=== PATIENT | female | born 1995 | race Caucasian/White ===

== ENCOUNTER 2018-11-20 00:17 | Emergency (ER) | payer OTHER ==
[~2018-11-20] VITALS: Ht 165.1 cm; Wt 77.1 kg
[2018-11-20] MEDS ORDERED: KEFLEX500 M1 PO (01:47)
[2018-11-20 02:06] VITALS: BP 109/57
--- NOTE | 2018-11-20 11:55 | EKG ---
[address] [address] ELECTROCARDIOGRAM REPORT Name: TUCKER,NESSA ESEQUIEL LEA Room #: DEP [facility]#: [id number] ������������������ Admission: 11/20/18 ������������������ Attend Phys: Discharge: 11/20/18 ������������������ Date of : [birth year] Report #: [id number] ����������������������������������������������������������������� [id number] THIS REPORT FOR: //name// [facility] ED Test Date: 2018-11-20 Test Time: 01:09:20 Pat Name: NESSA TUCKER Department: Room: Gender: F [employer]: jonathan samayoa : 1995 Requested By: Eb Castillo Order Number: [id number] MD: Nolan Regan Measurements Intervals [place] Rate: 74 P: 40 MI: 137 QRS: 36 QRSD: 81 T: 32 QT: 390 QTc: 433 Interpretive Statements Sinus arrhythmia No previous ECG available for comparison Electronically Signed On 11-20-2018 11:55:11 CDT by Nolan Regan [email or web address] ��������������������������������������������� <ELECTRONICALLY SIGNED> ���������������������������������������� By: Nolan Regan MD ��������������������������������������������� 11/20/18 1155 [id number] Nolan Regan MD /EPI
== END 2018-11-20 02:08 | disposition home or self-care (01) ==
LOC: ER 00:17
DX: R06.4 Hyperventilation (principal); L02.32 Furuncle of buttock